=== PATIENT | female | born 1950 | race Caucasian/White ===

== ENCOUNTER 2022-03-26 09:47 | Outpatient (CLI) | payer MEDICARE, SELFPAY ==
--- NOTE | ~2022-03-26 | DEXA_ITS ---
Bone Density Report Name: COURTNEY SNOWDEN Age: 72 Sex: Female Ethnicity: White Date of : 1950 Indication: postmenopausal; screening for osteoporosis; height loss; Referring Provider: Hayley, Blank Wilkerson Study: Bone densitometry was performed. Exam Date: March 26, 2022 Accession number: [id number] Bone Density: Region BMD T-score Z-score Classification AP Spine(L1, L2, L3) 0.977 -0.4 1.7 Normal Femoral Neck (Left) 0.922 0.7 2.5 Normal Total Hip (Left) 0.944 0.0 1.5 Normal Femoral Neck (Right) 0.911 0.6 2.4 Normal Total Hip (Right) 0.940 0.0 1.5 Normal Femoral Neck Mean 0.917 0.6 2.4 Normal Total Hip Mean 0.942 0.0 1.5 Normal World Health Organization criteria for BMD impression classify patients as: Normal (T-score at or above -1.0), Osteopenia (T-score between -1.0 and -2.5), or Osteoporosis (T-score at or below -2.5). 10-year Fracture Risk: FRAX not reported because: All T-scores for Spine Total, Hip Total, Femoral Neck at or above -1.0 Clinical Information Provided by Patient: Smokes Patient maximum height was 64 Menopause Age: 60 No regular weight bearing exercise Drinks caffeinated beverages Onset of menses at age 14 Number of children 1 Impression: The patient has normal bone mass. The patient has risk factors, including: smoking. Discussion: BONE DENSITY IS ABOVE THE MINIMUM DESIRABLE LEVEL AT ALL SKELETAL SITES TESTED. This patient?s bone mineral density is above the minimum desirable level (T-score -1.0 or better) at all sites measured. The patient should follow a healthful lifestyle (good nutrition with adequate calcium and vitamin D, and appropriate weight-bearing exercise). Follow-Up: Consider repeating this study in 5 years or sooner if there is some new clinical indication. Reported by: Dr. Jered Silver on 03/26/2022 10:20:00 AM. Reviewed, dictated and finalized at location [facility]
== END 2022-03-26 09:48 | disposition home or self-care (01) ==
LOC: CHSIMG 09:53
PROVIDERS: PCP Family Medicine; Visit Provider Family Medicine
DX: Z78.0 Asymptomatic menopausal state (principal)
CPT/HCPCS: 77080

== ENCOUNTER 2022-11-15 09:29 | Outpatient (CLI) | payer MEDICARE, SELFPAY ==
--- NOTE | ~2022-11-15 | XR_ITS ---
Right Knee Technique: AP, lateral, and sunrise views were obtained. Clinical History: Pain Findings: No fracture or dislocation is seen. Osseous alignment is anatomic. Osteophyte formation not ed at the lateral joint line. Minimal patellar spurring noted.. Soft tissues are unremarkable. No sean nt effusion is seen. Impression: Degenerative changes, as above. Reviewed, dictated and finalized at location . 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
--- NOTE | ~2022-11-15 | XR_ITS ---
Left Knee Technique: AP, lateral, and sunrise views were obtained. Clinical History: Pain Findings: No fracture or dislocation is seen. Osseous alignment is anatomic. Joint spaces are preserv ed without degenerative or erosive change. Soft tissues are unremarkable. No joint effusion is seen. Impression: Unremarkable left knee radiographs. Reviewed, dictated and finalized at location . 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
== END 2022-11-15 09:30 | disposition home or self-care (01) ==
LOC: CHSIMG 09:34
PROVIDERS: PCP Family Medicine
DX: M25.561 Pain in right knee (principal); M25.562 Pain in left knee
CPT/HCPCS: 73562

== ENCOUNTER 2022-12-11 16:01 | Outpatient (RCR) | payer MEDICARE, SELFPAY ==
--- NOTE | 2022-12-13 07:17 | BUPTOPEVAL1 ---
Assessment and note entered by Deshawn Jimenez Evaluation Information Assessment Status Evaluation Diagnosis bilateral knee pain Onset 11/29/22 Subjective Information Pt. recalls no incident just gradual onset of pain . She describes pain initially behind the left knee. She reports pain has also developed pain into the right groin and in the front of the right knee. She reports that nothing particular worsens her right knee pain. She states that she can notice pain with described knee flexion. She states that she can stand for 45 minute before having to sit due to pain. Pt. reports that she cannot do her household choirs due to increasing pain with standing. She reports that her goal for PT is to decrease her pain with ambulation. Reported Pain Level Pain Score 7,7: Self Report Assessment PT Clinical Summary Pt. is a 72 year old female who enters the clinic with bilateral knee pain. Pt. presents with indication of interarticular right hip pathology and lumbar radiculopathy on this date. Continued skilled PT is indicated in order to address pain, impaired gait, weakness, ROM and strength to assist in improved IADL performance. Plan of Care Interventions Electrical Stimulation,Gait Training,Manual Therapy,Neuro Re-education,Therapeutic Activities, Therapeutic Exercise PT Services Indicated Yes Treatment Frequency and 2x/week x 10 visits Duration These treatments will address the objective and functional deficits as defined above. The patient will be advanced safely and appropriately in order for the patient to progress towards his/her prior level of function. Additional exercises will be introduced and as well as a comprehensive home exercise program upon discharge, if needed, ?to ensure carryover of functional gains achieved in the clinic. This treatment plan has been reviewed and agreement upon by the patient.
== END 2023-01-03 11:33 | disposition home or self-care (01) ==
LOC: CHSPT 16:01
DX: M25.561 Pain in right knee (principal); M25.562 Pain in left knee
CPT/HCPCS: 97014; 97110; 97140; 97161; G0283

== ENCOUNTER 2023-02-01 12:20 | Outpatient (CLI) | payer MEDICARE, SELFPAY ==
--- NOTE | ~2023-02-01 | XR_ITS ---
AP and lateral views of the right hip Clinical history: Pain Findings: No acute fracture or dislocation is seen. Osseous alignment is anatomic. Right hip joint is preserved. Soft tissues are unremarkable. Impression: No significant abnormality is seen. Reviewed, dictated and finalized at location [facility] Impression: No significant abnormality is seen.
== END 2023-02-01 12:21 | disposition home or self-care (01) ==
LOC: CHSIMG 12:22
PROVIDERS: PCP Family Medicine; Visit Provider Family Medicine
DX: M25.551 Pain in right hip (principal)
CPT/HCPCS: 73502